=== PATIENT | female | born 1965 | race Caucasian/White ===

== ENCOUNTER 2016-11-26 11:08 | Emergency (ER) | payer BC ==
[~2016-11-26] VITALS: Ht 152.4 cm; Wt 52.0 kg
[2016-11-26 11:33] VITALS: BP 136/84; PULSE 84; RESP 15; TEMP 98.2; O2SAT 98
--- NOTE | 2016-11-26 12:14 | PD ---
HPI Chief Complaint: Injury Time Seen by Provider: 11:47 Travel History International Travel<30 days: No Contact w/Intl Traveler<30days: No Traveled to known affect area: No History of Present Illness HPI 51-year-old female presents to the emergency room for evaluation of left shoulder pain and swelling after drinking last night. Patient states around 1 or 2 in the morning she tripped and fell landing on her left shoulder. She denies hitting her head or loss of consciousness. States she was intoxicated. She denies any other injuries or pain today. She took Advil last night for pain without significant relief in symptoms. Patient states pain is severe and the "ball of the shoulder" and worse with any range of motion. Radiates down the entire left upper extremity. She denies paresthesias. She is from out of town and plans to go back to [place], [place] tomorrow. ON LICENSE OF [facility] Social History Tobacco Use: Yes Allergies-Medications (Allergen,Severity, Reaction): Coded Allergies: Penicillins (Verified Allergy, Unknown, 11/26/16) Review of Systems Except as stated in HPI: all other systems reviewed are Neg Physical Exam Narrative GENERAL: Well-nourished, well-developed female in no acute distress. Afebrile. Ambulatory. SKIN: Focused skin assessment warm/dry. HEAD: Normocephalic. EYES: No scleral icterus. No injection or drainage. NECK: Supple, trachea midline. No JVD or lymphadenopathy. CARDIOVASCULAR: Regular rate and rhythm without murmurs, gallops, or rubs. RESPIRATORY: Breath sounds equal bilaterally. No accessory muscle use. MUSCULOSKELETAL: No cyanosis. Extreme edema of the left shoulder. Extreme tenderness to palpation of the anterior humeral head. Limited range of motion secondary to pain. Patient is holding elbow flexed and against abdomen. 2+ radial pulse. Radial, ulnar, and median nerves intact. No tenderness to palpation of the clavicle. Data Data Last Documented VS Vital Signs Date Time Temp Pulse Resp B/P (MAP) Pulse Ox O2 Delivery O2 Flow Rate FiO2 11/26/16 11:33 98.2 84 15 136/84 (101) 98 Orders Orders Shoulder, Complete (>2vws) (11/26/16 ) Sling And Swathe (11/26/16 ) MDM Medical Decision Making Medical Screen Exam Complete: Yes Emergency Medical Condition: Yes Medical Record Reviewed: Yes Differential Diagnosis sprain, contusion, dislocation, fracture Narrative Course 51-year-old female presents to the emergency room for evaluation of left shoulder pain and swelling after injury last night. Patient tripped and fell landing on her left shoulder about 12 hours ago. Denies any other injuries. States she was intoxicated and does not exactly remember what happened. I can smell alcohol on her breath. Left upper extremity is neurovascularly intact with 2+ radial pulse. Radial, ulnar, and median nerves intact. Limited range of motion secondary to pain. Patient is holding her arm flexed against abdomen. She is from [place] and plans to go back tomorrow. X-ray shows nondisplaced transverse fracture through the neck of the humerus. No indications for emergent orthopedic referral at this time. Patient placed in sling and swath. Told to follow up with her primary care physician for orthopedic referral or return for worsening symptoms. She understands and agrees to plan. Diagnosis Primary Impression: Left humeral fracture Qualified Codes: S42.295A - Other nondisplaced fracture of upper end of left humerus, initial encounter for closed fracture Referrals: Orthopedist Additional Instructions: Rest and drink plenty of fluids. Take Lortab as directed, as needed for pain. Do not drink alcohol or drive while taking this medication. Use sling and swath until follow-up. Apply ice to the affected area for 20 minutes at a time, as needed for pain and swelling. Follow-up with a primary care physician. Return to the emergency room for worsening symptoms. Disposition: 01 DISCHARGE HOME Condition: Stable Millicent Yanez Nov 26, 2016 12:14
--- NOTE | 2016-11-26 12:31 | RADRPT ---
EXAM DATE/TIME: 11/26/2016 12:29 [facility] COMPARISON: No previous studies available for comparison. INDICATIONS : Left shoulder pain after fall. MEDICAL HISTORY : None. SURGICAL HISTORY : None. ENCOUNTER: Initial ACUITY: 2 days PAIN SCORE: 10/10 LOCATION: Left shoulder FINDINGS: Multiple view examination of the left shoulder demonstrates a nondisplaced transverse impaction fract ure through the neck of the proximal left humerus. There also appears to be a fracture involving the greater tuberosity. No joint dislocation is demonstrated. The rest of the bony structures are grossly intact. CONCLUSION: Nondisplaced transverse impaction fracture through the neck of the proximal left humerus. Ethan Quinteros MD on November 26, 2016 at 12:29 Board Certified Radiologist. This report was verified electronically.
[2016-11-26] MEDS ORDERED: HYDR-3533 PO (12:45)
== END 2016-11-26 13:09 | disposition home or self-care (01) ==
LOC: NEPK 11:08
DX: S42.295A Other nondisplaced fracture of upper end of left humerus, initial encounter for closed fracture (principal); W01.0XXA Fall on same level from slipping, tripping and stumbling without subsequent striking against object, initial encounter; Z88.0 Allergy status to penicillin; Z72.0 Tobacco use
CPT/HCPCS: 29240; 73030